=== PATIENT | female | born 1965 | race Caucasian/White ===

== ENCOUNTER → 2020-06-07 | Outpatient (CLI) | payer BC ==
[~2020-06-07] MED LIST: COUMADIN5 MG PO; ENOXAPARIN100 MG/1 M SC
--- NOTE | 2020-06-07 08:48 | Diagnostic Imaging Report ---
EXAMINATION: HAND TWO VIEWS BILATERAL INDICATION: Chronic hand pain, psoriasis COMPARISON: None FINDINGS: Right hand: No acute fracture or dislocation. Alignment is anatomic. Soft tissues appear unremarkable. No evidence of inflammatory arthropathy. Left hand: No acute fracture or dislocation. Alignment is anatomic. Soft tissues appear unremarkable. No evidence of inflammatory arthropathy. IMPRESSION: No acute osseous injury. No evidence of inflammatory arthritis. Signed by: Gilberto Figueroa MD on 06/07/2020 8:45 AM
--- NOTE | 2020-06-07 08:51 | Diagnostic Imaging Report ---
EXAMINATION: FOOT COMPLETE BILATERAL INDICATION: Chronic pain, cirrhosis COMPARISON: None FINDINGS: Left foot: No acute fracture or dislocation. Alignment is anatomic. Mild diffuse subcutaneous soft tissue swelling. Scattered atherosclerotic arterial calcifications. No evidence of inflammatory arthritis. Small plantar calcaneal spur. Right foot: No acute fracture or dislocation. Alignment is anatomic. Mild diffuse subcutaneous soft tissue swelling. Scattered atherosclerotic arterial calcifications. No evidence of inflammatory arthritis. Small plantar calcaneal spur. IMPRESSION: No acute osseous injury. No evidence of inflammatory arthritis. Signed by: Gilberto Figueroa MD on 06/07/2020 8:48 AM
--- NOTE | 2020-06-07 08:59 | Diagnostic Imaging Report ---
EXAMINATION: SI JOINTS MORE THAN 3 VIEWS, SP LUMBAR AP LATERAL 2-3VWS INDICATION: Arthralgia, psoriasis COMPARISON: None FINDINGS: AP and lateral images of the lumbar spine and AP and oblique images of the sacroiliac joints demonstrates no acute fracture or dislocation. Alignment is anatomic. Minimal multilevel degenerative changes with small osteophyte formation. No joint space narrowing or sclerosis of the sacroiliac joints to suggest inflammatory arthritis. IMPRESSION: No acute osseous injury. No evidence of inflammatory arthritis. Signed by: Gilberto Figueroa MD on 06/07/2020 8:56 AM
== END ==
LOC: RAD 07:14
PROVIDERS: ATTEND Allergy & Immunology Allergy
DX: M54.5 Low back pain (principal); M25.572 Pain in left ankle and joints of left foot; M25.571 Pain in right ankle and joints of right foot; M25.542 Pain in joints of left hand; M25.541 Pain in joints of right hand; M53.3 Sacrococcygeal disorders, not elsewhere classified
CPT/HCPCS: 72100; 72202

== ENCOUNTER 2021-05-07 19:08 | Inpatient (IN) | payer BC ==
[~2021-05-07] VITALS: Ht 160 cm; Wt 204.1 kg
[2021-05-07] MEDS ORDERED: LEVOFLOXACIN 500MG/D5W 100ML 100 ML IV ONE (19:30)
[2021-05-07] MEDS ORDERED: ACETAMINOPHEN 325 MG TAB PO ONE (19:30)
[2021-05-07] MEDS ORDERED: SODIUM CHLORIDE 0.9% 1000ML 1,000 ML IV ONE (19:30)
[2021-05-07 19:43] LABS: BASOPHILS # (AUTO) 0.1 (0.0-0.1); BASOPHILS % 0.3 % (0.0-1.0); EOSINOPHILS # (AUTO) 0.1 (0.0-0.4); EOSINOPHILS % 0.6 % (0.0-6.0); HEMOGLOBIN 11.9 g/dL (12.0-16.0); LYMPHOCYTES # (AUTO) 0.9 (1.0-3.2); LYMPHOCYTES % 6.2 % (18.0-39.1); MEAN CORPUSCULAR HEMOGLOBIN 25.3 pg (28-32); MEAN CORPUSCULAR HGB CONC 31.3 g/dL (31-35); MEAN CORPUSCULAR VOLUME 80.7 fL (81-99); MONOCYTES # (AUTO) 0.7 (0.2-0.8); MONOCYTES % 4.3 % (4.4-11.3); NEUTROPHILS # (AUTO) 13.3 (2.1-6.9); PLATELET COUNT 223 x10e3/uL (140-360); RED BLOOD COUNT 4.71 x10e6/uL (3.6-5.1); RED CELL DISTRIBUTION WIDTH 17.1 % (11.7-14.4)
[2021-05-07] MEDS ORDERED: ACETAMINOPHEN 325 MG TAB ONE ×2 (19:44→19:47)
[2021-05-07 19:52] LABS: INR 1.6; PROTHROMBIN TIME 19.9 seconds (11.9-14.5)
[2021-05-07 19:53] LABS: PARTIAL THROMBOPLASTIN TIME 27.5 seconds (23.8-35.5)
[2021-05-07 19:59] LABS: CLARITY,URINE SL CLOUDY (CLEAR); COLOR,URINE YELLOW (YELLOW); KETONES,URINE NEGATIVE (NEGATIVE); LEUKOCYTE ESTERASE ,URINE NEGATIVE (NEGATIVE); NITRITE,URINE NEGATIVE (NEGATIVE); PROTEIN,URINE DIPSTICK NEGATIVE (NEGATIVE); URINE UROBILINOGEN 0.2 mg/dL (0.2 - 1)
[2021-05-07 20:01] LABS: ALBUMIN 3.8 g/dL (3.5-5.0); ANION GAP 15.9 mmol/L (8-16); CALCIUM 8.6 mg/dL (8.4-10.2); CREATININE, SERUM 0.94 mg/dL (0.57-1.11); POTASSIUM 3.9 mmol/L (3.5-5.1)
[2021-05-07 20:11] LABS: BACTERIA,URINE FEW /HPF; EPITHELIAL CELLS,URINE MODERATE /LPF
[2021-05-07] MEDS ORDERED: ONDANSETRON HCL INJ 2MG/ML 2ML 2 MG/ML VIAL IV STA (20:11)
[2021-05-07] MEDS ORDERED: PROMETHAZINE HCL (IM) 25 MG/ML VIAL IM ONE (21:30)
[2021-05-07] MEDS ORDERED: IBUPROFEN 600 MG TAB PO STA (21:51)
[2021-05-07] MEDS ORDERED: VANCOMYCIN 1GM/NS 250 ML 250 ML IV ONE (22:00)
[2021-05-07] MEDS ORDERED: LEVOFLOXACIN 500MG/D5W 100ML 100 ML IV SCH (22:00)
[2021-05-07] MEDS ORDERED: ONDANSETRON HCL INJ 2MG/ML 2ML 2 MG/ML VIAL IV PRN (22:00)
[2021-05-07] MEDS ORDERED: SODIUM CHLORIDE 0.9% 250ML 250 ML ONE (23:13)
[2021-05-07] MEDS ORDERED: Vancomycin IV 1 GM VIAL ONE (23:13)
[2021-05-08] VITALS (7 sets, daily range): BP systolic 98–114; BP diastolic 59–65
[2021-05-08] MEDS: SODIUM CHLORIDE 0.9% 1000ML 1,000 ML IV SCH ×2 (00:35→06:14)
[2021-05-08] MEDS ORDERED: PROMETHAZINE 12.5MG/ NACL 0.9% 12.5 MG/50 ML BAG IV ONE (06:15)
[2021-05-08] MEDS ORDERED: PROMETHAZINE HCL (IM) 25 MG/ML VIAL IM ONE (06:15)
[2021-05-08 07:08] LABS: BASOPHILS # (AUTO) 0.1 (0.0-0.1); BASOPHILS % 0.4 % (0.0-1.0); HEMATOCRIT 36.8 % (34.2-44.1); HEMOGLOBIN 11.4 g/dL (12.0-16.0); LYMPHOCYTES # (AUTO) 0.5 (1.0-3.2); LYMPHOCYTES % 3.2 % (18.0-39.1); MEAN CORPUSCULAR HEMOGLOBIN 25.3 pg (28-32); MEAN CORPUSCULAR VOLUME 81.6 fL (81-99); MONOCYTES # (AUTO) 0.5 (0.2-0.8); MONOCYTES % 3.1 % (4.4-11.3); NEUTROPHILS # (AUTO) 14.8 (2.1-6.9); NEUTROPHILS % 92.1 % (38.7-80.0); PLATELET COUNT 168 x10e3/uL (140-360); RED BLOOD COUNT 4.51 x10e6/uL (3.6-5.1); RED CELL DISTRIBUTION WIDTH 17.5 % (11.7-14.4)
[2021-05-08 07:43] LABS: ALBUMIN 3.3 g/dL (3.5-5.0); ALBUMIN/GLOBULIN RATIO 0.9 (0.8-2.0); ANION GAP 11.7 mmol/L (8-16); CALCIUM 8.3 mg/dL (8.4-10.2); CREATININE, SERUM 0.94 mg/dL (0.57-1.11); POTASSIUM 3.7 mmol/L (3.5-5.1)
[2021-05-08] MEDS ORDERED: AZTREONAM 2GM/NS 100ML 100 ML IV ONE (09:30)
[2021-05-08] MEDS ORDERED: FUROSEMIDE INJ 10 MG/ML 4 ML VIAL IV ONE (10:00)
[2021-05-08 10:39] LABS: BAND NEUTROPHILS % (MANUAL) 11 %; LYMPHOCYTES % (MANUAL) 4 % (19-48); MONOCYTES % (MANUAL) 1 % (3.4-9.0); NEUTROPHILS % (MANUAL) 84 % (40-74); NUCLEATED RED BLOOD CELLS 1
[2021-05-08 10:40] LABS: PLATELET ESTIMATE ADEQUATE; PLATELET MORPHOLOGY COMMENT NORMAL; RBC MORPHOLOGY COMMENT NORMAL
[2021-05-08] MEDS: LINEZOLID 600 MG TAB PO SCH ×2 (10:47→17:15)
[2021-05-08] MEDS: ENOXAPARIN SOD INJ 40 MG/0.4 ML SYR SC SCH ×2 (10:48→21:20)
[2021-05-08] MEDS: ONDANSETRON HCL INJ 2MG/ML 2ML 2 MG/ML VIAL IV PRN ×2 (10:48→17:30)
[2021-05-08] MEDS: ACETAMINOPHEN 325 MG TAB PO PRN (10:48)
[2021-05-08] MEDS: MORPHINE SULFATE INJ 4 MG/ML INJ 1ML IV PRN ×2 (11:14→17:15)
[2021-05-08] MEDS ORDERED: WARFARIN SOD 5 MG TAB PO SCH (17:00)
[2021-05-08] MEDS ORDERED: PROMETHAZINE 12.5MG/ NACL 0.9% 12.5 MG/50 ML BAG IV PRN (19:30)
[2021-05-08] MEDS ORDERED: ATENOLOL50 MG PO (20:39)
[2021-05-08] MEDS ORDERED: PLAQUENIL200 MG PO (20:39)
[2021-05-09] VITALS (7 sets, daily range): BP systolic 92–129; BP diastolic 63–88
[2021-05-09 05:32] LABS: BASOPHILS % 0.4 % (0.0-1.0); EOSINOPHILS % 0.1 % (0.0-6.0); HEMATOCRIT 33.6 % (34.2-44.1); HEMOGLOBIN 10.5 g/dL (12.0-16.0); LYMPHOCYTES # (AUTO) 1.2 (1.0-3.2); LYMPHOCYTES % 13.3 % (18.0-39.1); MEAN CORPUSCULAR HEMOGLOBIN 25.2 pg (28-32); MEAN CORPUSCULAR HGB CONC 31.3 g/dL (31-35); MEAN CORPUSCULAR VOLUME 80.8 fL (81-99); MONOCYTES # (AUTO) 0.4 (0.2-0.8); MONOCYTES % 4.4 % (4.4-11.3); NEUTROPHILS # (AUTO) 7.5 (2.1-6.9); NEUTROPHILS % 80.9 % (38.7-80.0); PLATELET COUNT 167 x10e3/uL (140-360); RED BLOOD COUNT 4.16 x10e6/uL (3.6-5.1); RED CELL DISTRIBUTION WIDTH 17.4 % (11.7-14.4)
[2021-05-09 05:45] LABS: INR 1.84; PROTHROMBIN TIME 22.2 seconds (11.9-14.5)
[2021-05-09 05:53] LABS: ANION GAP 11.1 mmol/L (8-16); CALCIUM 8.6 mg/dL (8.4-10.2); CREATININE, SERUM 0.93 mg/dL (0.57-1.11); POTASSIUM 3.1 mmol/L (3.5-5.1)
[2021-05-09] MEDS ORDERED: POTASSIUM CHLORIDE 20 MEQ TAB CR PO ONE (09:15)
[2021-05-09] MEDS: LINEZOLID 600 MG TAB PO SCH ×2 (09:27→17:46)
[2021-05-09] MEDS: ENOXAPARIN SOD INJ 40 MG/0.4 ML SYR SC SCH ×2 (09:27→21:00)
[2021-05-09] MEDS: ACETAMINOPHEN 325 MG TAB PO PRN ×2 (11:33→21:47)
[2021-05-09] MEDS ORDERED: WARFARIN SOD 5 MG TAB PO SCH (17:00)
[2021-05-10] VITALS: BP 117/72
[2021-05-10] MEDS: ONDANSETRON HCL INJ 2MG/ML 2ML 2 MG/ML VIAL IV PRN (01:51)
[2021-05-10 04:00] VITALS: BP 97/53
[2021-05-10 06:48] LABS: INR 1.7; PROTHROMBIN TIME 20.9 seconds (11.9-14.5)
[2021-05-10 06:53] LABS: ANION GAP 12.2 mmol/L (8-16); CALCIUM 8.4 mg/dL (8.4-10.2); CREATININE, SERUM 0.79 mg/dL (0.57-1.11); MAGNESIUM 1.9 MG/DL (1.3-2.1); POTASSIUM 3.2 mmol/L (3.5-5.1)
[2021-05-10 08:12] VITALS: BP 124/71
[2021-05-10 08:42] VITALS: BP 124/71
[2021-05-10] MEDS: LINEZOLID 600 MG TAB PO SCH (09:13)
[2021-05-10] MEDS: ENOXAPARIN SOD INJ 40 MG/0.4 ML SYR SC SCH (09:13)
[2021-05-10 11:41] VITALS: BP 107/60
[2021-05-10] MEDS ORDERED: POTASSIUM CHLORIDE 20 MEQ TAB CR PO NR (13:18)
[2021-05-10] MEDS ORDERED: LEVOFLOXACIN250 MG PO (13:20)
[2021-05-10] MEDS ORDERED: WARFARIN SOD 5 MG TAB PO SCH (17:00)
== END 2021-05-10 14:18 | disposition home or self-care (01) | DRG 872 ==
LOC: ER 19:25 → ERHOLD 21:57 → IMCU 05-08 09:04 → MED/SURG3 05-09 18:00
PROVIDERS: ADMIT Internal Medicine; ATTEND Internal Medicine
DX: A40.8 Other streptococcal sepsis (principal); L03.115 Cellulitis of right lower limb; Z68.45 Body mass index [BMI] 70 or greater, adult; E66.01 Morbid (severe) obesity due to excess calories; Z88.1 Allergy status to other antibiotic agents; Z88.0 Allergy status to penicillin; Z86.711 Personal history of pulmonary embolism; Z79.01 Long term (current) use of anticoagulants; Z20.822 Contact with and (suspected) exposure to COVID-19
CPT/HCPCS: 36415; 71045; 74018; 80048; 80053; 81001; 83605; 83735; 85025; 85610; 85730; 87040; 87071; 87086; 87205; 93306; 96365; 99251; 99284; J1650; J1940; J1956; J2270; J2405; J2550; J3370; J7030; J7050; U0002